=== PATIENT | female | born 1995 | race Caucasian/White ===

== ENCOUNTER 2019-01-20 04:15 | Inpatient (IN) ==
[2019-01-20] MEDS ORDERED: LACTATED RINGER'S 1,000 ML IV PRN (05:27)
[2019-01-20] MEDS ORDERED: OXYTOCIN 30 UNITS/500 ML BAG IV PRN ×2 (05:27→07:56)
[2019-01-20] MEDS ORDERED: fentaNYL citrate 100 MCG/2 ML VIAL ONE (05:58)
[2019-01-20] MEDS ORDERED: BUPIVACAINE 0.25% 30 ML VIAL ONE (05:58)
[2019-01-20] MEDS ORDERED: ePHEDrine sulfate 50 MG/ML AMP ONE (05:58)
[2019-01-20] MEDS ORDERED: fentaNYL 2MCG/ML ROPIV 1.25MG/ML 100 ML BAG EPI ONE (05:58)
[2019-01-20 06:00] LABS: Hematocrit (blood only) 31.4 % (37-47); Hemoglobin 9.6 g/dL (12.0-16.0); Mean Corpuscular Hemoglobin 25.2 pg (25-34); Mean Corpuscular Volume 82.4 fL (80-100); Platelet Count 202 K/uL (130-400); RDW Coefficient of Variation 16.7 % (11.5-14.5); Red Blood Count 3.81 M/uL (4.2-5.4); White Blood Count 13.58 K/uL (4.8-10.8)
[2019-01-20 06:02] LABS: Mean Corpuscular Hgb Conc 30.6 g/dL (32-36)
[2019-01-20] MEDS ORDERED: NALBUPHINE HCL INJ 10 MG/ML AMP IV PRN (06:11)
[2019-01-20] MEDS ORDERED: ePHEDrine sulfate 50 MG/ML AMP IV PRN (06:11)
[2019-01-20] MEDS ORDERED: NALOXONE HCL 1 MG in SODIUM CHLORIDE 0.9% 1000ML 1,000 ML IV PRN (06:11)
[2019-01-20] MEDS ORDERED: fentaNYL 2MCG/ML ROPIV 1.25MG/ML 100 ML BAG EPI PRN (06:11)
[2019-01-20] MEDS ORDERED: ONDANSETRON INJ 2 MG/ML 2 ML VIAL IV PRN (06:11)
[2019-01-20] MEDS ORDERED: NALOXONE HCL 0.4 MG/1 ML VIAL/CARP IV PRN (06:11)
[2019-01-20] MEDS ORDERED: DiphenhydrAMINE HCL 50 MG/ML VIAL IV PRN (06:11)
--- NOTE | 2019-01-20 06:14 | Anesthesiology Consultation ---
Date of Service January 20, 2019 Assessment & Plan (1) Encounter for pre-operative examination: Chart Review Chart Review: Patient NOT seen in Pre Admission Testing and Acceptable Risk for Labor Epidural Consults Requested none History Height/Weight Height: 5 ft 6 in Weight: 96.615 kg Allergies Allergy/AdvReac Type Severity Reaction Status Date / Time Penicillins Allergy Unknown RASH Verified 01/15/19 12:25 Medications Home Medications Medication Instructions Recorded Confirmed Last Taken buspirone 10 mg tablet 10 mg PO TID tab 09/21/18 01/20/19 01/19/19 lorazepam 0.5 mg PO BID PRN 01/20/19 01/20/19 Unknown paroxetine HCl 20 mg PO DAILY 01/20/19 01/20/19 01/19/19 Active Medications Generic Name Dose Route Start Last Admin Trade Name Freq PRN Reason Stop Dose Admin Lactated Ringer's 1,000 mls @ 125 mls/hr 01/20/19 05:27 01/20/19 06:00 Lr IV 01/22/19 05:26 999 mls/hr .Q8H PRN Administration L&D Protocol Protocol Past Medical History Medical History Abdominal trauma Anxiety History of anemia History of labor labor Exercise / Class Metabolic Activity II 4-5 Yardwork/Stairs/Walk up hill Past Family History Family History Grandmother (Maternal) Diabetes Cancer Mother Family history of fraternal twins Father Hypertension Brother Hypertension Grandmother (Paternal) Hypertension Grandmother (Maternal) Stroke Past Surgical History Surgical History No history of previous surgery Past Anesthesia History No Hx of Anesthesia Complications and No Family Hx of Anesthesia Complications History of PONV No Hx of PONV and No Hx of Motion Sickness Social History Smoking Status: Never smoker Do You Dip or Chew Tobacco: No Hx Alcohol Use: No Hx Substance Use: No substance use type: does not use Physical Exam Vital Signs Last Vital Signs Temp 37.2 C 01/20/19 04:39 Pulse 99 H 01/20/19 06:31 Resp 18 01/20/19 04:39 BP 184/84 H 01/20/19 06:31 Pulse Ox 94 01/20/19 06:31 Testing Laboratory Results 01/20/19 05:44
[2019-01-20] MEDS ORDERED: IBUPROFEN 600 MG TAB PO ONE (07:31)
[2019-01-20] MEDS ORDERED: DIPHTHERIA/TETANUS/PERTUSSIS 0.5 ML SYR/VIAL IM ONE (07:56)
[2019-01-20] MEDS ORDERED: LORazepam 0.5 MG TAB PO PRN (07:56)
[2019-01-20] MEDS ORDERED: LACTATED RINGER'S 1,000 ML IV SCH (07:56)
[2019-01-20] MEDS ORDERED: SUPERCREAM 0.870% 15 GM JAR EXT PRN (07:56)
[2019-01-20] MEDS ORDERED: HYDROCORTISONE ACETATE 25 MG SUPP PR PRN (07:56)
[2019-01-20] MEDS ORDERED: BENZOCAINE 20% AER SPR 82.5 GM CAN EXT PRN (07:56)
--- NOTE | 2019-01-20 08:03 | Delivery Summary ---
Vaginal Delivery Summary Date of Service January 20, 2019 Vaginal Delivery Summary DIAGNOSES: 1. Harvey intrauterine at 39w5d gestation. 2. SROM/Labor. 3. Group B Streptococcus Neg. 4. Shoulder dystocia PROCEDURE: Spontaneous vaginal delivery, management of shoulder dystocia. SURGEON: Danielle Holland MD. FRONT DESK AGENT: None. ESTIMATED BLOOD LOSS: 350 mL. COMPLICATIONS: None. PLACENTA: Spontaneous and intact with a 3-vessel cord. DISPOSITION: Stable to labor and delivery. DESCRIPTION: The patient pushed well and brought the head to in OA position. The infant's head remained tight to the perineum after delivering, and the next maternal push did not result in movement forward. Assistance was called to the room for shoulder dystocia. Marly position was employed and suprapubic pressure from the posterior aspect of the left/anterior shoulder was applied by BRIELLE Spears. There was again no movement with maternal pushing effort. The mother was asked to stop all pushing, and I palpated the position of the shoulders, and found that I was able to rotate the by applying two fingers of pressure behind the left shoulder, rotating clockwise. Mom was instructed to push and with the corkscrew motion her 's shoulder delivered while rotating 180 degrees. The left/posterior shoulder was then past the perineum. With the next push, the right/now anterior shoulder delivered. There was no nuchal cord. The infant was placed on the maternal abdomen. It was vigorous and moving all extremities, specifically seen to use both arms and extend and flex both hands, and making respiratory efforts. The cord was doubly clamped by the MD and then cut by the FOB. The placenta delivered spontaneously and was noted to be intact and with a 3VC. The cervix, vagina and perineum were examined and were found to be without defect requiring repair. The fundus was firm and lochia minimal immediately after delivery.
--- NOTE | 2019-01-20 08:31 | Anesthesia Procedure Note ---
Date of Service January 20, 2019 Anesthesia Post Epidural Note Vital Signs Vital Signs: Temp Pulse Resp BP Pulse Ox 37.2 C 60 18 119/61 99 01/20/19 04:39 01/20/19 08:30 01/20/19 08:00 01/20/19 08:30 01/20/19 06:52 Pain Intensity Abdomen: Pain Intensity: 1 Notes Mental Status: alert / awake / arousable and participated in evaluation Nausea / Vomiting: adequately controlled Pain: adequately controlled Airway Patency, RR, SpO2: stable & adequate BP & HR: stable & adequate Hydration State: stable & adequate Neuraxial Anesthesia: was administered and sensory block is resolving Anesthetic Complications: no major complications apparent and Pt Satisfied with anesthetic care Epidural: Removed without complications and With tip intact
[2019-01-20] MEDS: PRENATAL VITAMIN 1 TAB PO SCH (09:28)
[2019-01-20] MEDS: DOCUSATE SODIUM 100 MG CAP PO SCH ×2 (09:28→20:25)
[2019-01-20] MEDS: PARoxetine HCl 20 MG TAB PO SCH (12:17)
[2019-01-20] MEDS: IBUPROFEN 600 MG TAB PO PRN ×3 (12:17→20:27)
[2019-01-20] MEDS: ACETAMINOPHEN 325 MG TAB PO PRN ×2 (15:32→23:13)
[2019-01-21] MEDS: IBUPROFEN 600 MG TAB PO PRN ×2 (03:23→08:18)
[2019-01-21] MEDS: ACETAMINOPHEN 325 MG TAB PO PRN (04:48)
[2019-01-21 06:25] LABS: Hematocrit (blood only) 30.2 % (37-47); Hemoglobin 9.5 g/dL (12.0-16.0); Mean Corpuscular Hemoglobin 25.7 pg (25-34); Mean Corpuscular Hgb Conc 31.5 g/dL (32-36); Mean Corpuscular Volume 81.8 fL (80-100); Mean Platelet Volume 10.9 fL (7.4-10.4); Platelet Count 183 K/uL (130-400); RDW Standard Deviation 50.4 fL (36.4-46.3); Red Blood Count 3.69 M/uL (4.2-5.4); White Blood Count 12.62 K/uL (4.8-10.8)
[2019-01-21] MEDS: PRENATAL VITAMIN 1 TAB PO SCH (08:17)
[2019-01-21] MEDS: DOCUSATE SODIUM 100 MG CAP PO SCH (08:17)
[2019-01-21] MEDS: PARoxetine HCl 20 MG TAB PO SCH (08:18)
--- NOTE | 2019-01-21 09:24 | Obstetrical Progress Note ---
Date of Service January 21, 2019 Assessment & Plan (1) Vaginal delivery: Doing well. Plan d/c. Instructions given. continue antidepressant , call if mood worsens. Day #:: 2 Subjective Ambulation: ambulating normally Voiding: no voiding problems Passing Gas:: Yes Diet Tolerance:: regular diet (no n/v) Lochia:: Small Feeding Type:: bottle feeding Patient notes lots of cramping. Desires d/c today. Physical Exam Constitutional WD/WN, vitals as above Respiratory normal respiratory effort, lungs clear to auscultation Cardiovascular RRR, no murmur, no edema Gastrointestinal (Abdomen) soft, nt, nd ff/nt at u Psychiatric A+Ox3, euthymic affect Results & Data Vital Signs (Past 12 Hours) Vital Signs Temp Pulse Resp BP Pulse Ox 01/21/19 03:20 36.6 C 62 16 139/82 98 01/20/19 23:05 36.6 C 71 16 148/87 H 97
== END 2019-01-21 13:55 | disposition home or self-care (01) | DRG 807 ==
LOC: OPB 04:15 → 4S1 04:17 → 4S2 09:45